=== PATIENT | male | born 1985 | race Caucasian/White ===

== ENCOUNTER 2019-11-08 22:40 | Emergency (ER) | payer MEDICAID ==
[~2019-11-08] VITALS: Ht 175.3 cm; Wt 113.4 kg
[2019-11-09] MEDS ORDERED: FLUORESCEIN SOD 1 MG TEST STRIP LEFTEYE ONE (01:00)
[2019-11-09] MEDS ORDERED: KETOROLAC TROMETH 60MG/2ML VIAL IM ONE (01:00)
[2019-11-09] MEDS ORDERED: TETRACAINE HCL 0.5% OPTH(EYE) SOLN 4ML LEFTEYE ONE (01:00)
[2019-11-09 01:16] VITALS: BP 140/78
== END 2019-11-09 01:51 | disposition home or self-care (01) ==
LOC: ER 22:40
DX: T15.02XA Foreign body in cornea, left eye, initial encounter (principal); W22.8XXA Striking against or struck by other objects, initial encounter; Y93.89 Activity, other specified; Y92.89 Other specified places as the place of occurrence of the external cause; Y99.8 Other external cause status
CPT/HCPCS: 65222; 96372; 99284; J1885; 65220